=== PATIENT | female | born 1995 | race Caucasian/White ===

== ENCOUNTER 2018-08-11 15:02 | Emergency (ER) | payer SELFPAY ==
[~2018-08-11] VITALS: Ht 162.6 cm; Wt 68.0 kg
--- NOTE | 2018-08-11 15:24 | Emergency Room Report ---
History of Present Illness General Chief Complaint: Overdose Source: Patient, EMS (Dru Saucedo MD) Present Illness HPI 22-year-old female presents ED for evaluation. Brought in by EMS for altered level of consciousness. Friends called 911 stating the patient overdosed on ketamine and GHB since last night. Patient is lethargic. Protecting her airways. Patient given Narcan in the field without improvement. Patient unable to provide any additional history at this time. No family or friends at bedside to provide any additional history. No other aggravating relieving factors. No other associated symptoms (Dru Saucedo MD) Allergies: Coded Allergies: UNABLE TO ASSESS (Unverified , 08/11/18) Patient History Past Medical History: none Past Surgical History: none Pertinent Family History: none Social History: Reports: drug use; Denies: smoking, alcohol use Now: No Immunizations: UTD Reviewed Nursing Documentation: PMH: Agreed; PSxH: Agreed (Dru Saucedo MD) Nursing Documentation-PMH Past Medical History: No Stated History (Dru Saucedo MD) Review of Systems All Other Systems: limited (Dru Saucedo MD) Physical Exam Vital Signs Date Time Temp Pulse Resp B/P (MAP) Pulse Ox O2 Delivery O2 Flow Rate FiO2 08/11/18 14:59 98.1 99 15 97/44 98 Room Air Sp02 EP Interpretation: reviewed, normal General Appearance: no apparent distress, lethargic Head: normocephalic Eyes: bilateral eye normal inspection, bilateral eye PERRL, bilateral eye other - pinpoint ENT: normal ENT inspection Neck: normal inspection Respiratory: chest non-tender, lungs clear, normal breath sounds, speaking full sentences Cardiovascular #1: regular rate, rhythm, no edema Gastrointestinal: normal bowel sounds, non tender, soft, non-distended, no guarding, no rebound Rectal: deferred Genitourinary: normal inspection Musculoskeletal: back normal, gait/station normal, normal range of motion, non- tender Neurologic: other - lethargic Psychiatric: other - lethargic Skin: normal inspection Lymphatic: normal inspection (Dru Saucedo MD) Medical Decision Making Diagnostic Impression: Primary Impression: Polysubstance abuse Additional Impression: Drug overdose Qualified Codes: T50.901A - Poisoning by unspecified drugs, medicaments and biological substances, accidental (unintentional), initial encounter ER Course Patient signout to me. Patient presents with polysubstance overdose. She was unresponsive for unknown amount of time. I was going to get a CT scan to make sure there is no bleeding. As she was being transported, she became very aggressive and yelling. Initially incomprehensible yelling. Later on she was able to verbalize saying "God help me." I had to sedate her. Her was no focal deficit. She slept for another hour or so and woke up and able to verbalize everything. There is no focal deficit. She is now back to baseline. Her friend called and said she will picked her up in the morning. Patient denies suicidal thoughts or homicidal thought. There is no criteria for admission now or 5150. This patient is a chronic risk of self injury due to poor impulse control, limited coping skills, and judgment intermittently impaired by intoxication. I believe that the available clinical evidence to suggest that these characteristics derived primarily from personality disorder and are likely very stable over time. Hospitalization would likely attenuate risk of self-harm only during long term period, without lasting risk reduction. Serious self-harm , while possible, would likely be inadvertent, and because of impulsivity, and foreseeable. For these reasons, I do not believe hospitalization would provide meaningful reduction in risk of self-harm. (Abhilash Montalvo MD) EKG Diagnostic Results Rate: normal Rhythm: NSR ST Segments: no acute changes ASA given to the pt in ED: No (Dru Saucedo MD) Rhythm Strip Diag. Results EP Interpretation: yes Rhythm: NSR, no PVC's, no ectopy (Dru Saucedo MD) Last Vital Signs Date Time Temp Pulse Resp B/P (MAP) Pulse Ox O2 Delivery O2 Flow Rate FiO2 08/11/18 14:59 98.1 99 15 97/44 98 Room Air (Dru Saucedo MD) Status: improved (Abhilash Montalvo MD) Disposition: HOME, SELF-CARE Condition: Stable Additional Instructions: Stop using drugs. Follow-up with rehabilitation. Follow-up with your doctor within a week. Return if symptom worsen. Dru Saucedo MD August 11, 2018 15:24 Abhilash Montalvo MD August 12, 2018 05:26
[2018-08-11 15:32] VITALS: BP 85/46
--- NOTE | 2018-08-11 15:36 | NUR ---
ED Nurse Note:pt. was BIBA from home with OD on unknown substance, VSS, pt. is lethargic on arrival, placed on supervisor finishing department for observation, blood and urine sent to labs, given IV fluids for hypotention
[2018-08-11 16:02] VITALS: BP 100/67
--- NOTE | 2018-08-11 16:03 | NUR ---
ED Nurse Note:pt's O2 sats went down -she was placed on non-rebrither mask and O2 went to 100%, continue monitor VS
[2018-08-11 16:13] LABS: APPEARANCE,URINE CLEAR; BILIRUBIN, URINE NEGATIVE (NEGATIVE); COLOR,URINE PALE YELLOW; GLUCOSE, URINE (UA) NEGATIVE (NEGATIVE); KETONES,URINE NEGATIVE (NEGATIVE); LEUKOCYTE ESTERASE ,URINE NEGATIVE (NEGATIVE); NITRITE,URINE NEGATIVE (NEGATIVE); PH,URINE 5 (4.5-8.0); PROTEIN,URINE NEGATIVE (NEGATIVE); UROBILINOGEN,URINE NORMAL MG/DL (0.0-1.0)
[2018-08-11 16:15] LABS: BASOPHILS % (AUTO) 1.5 % (0.0-2.0); EOSINOPHILS % (AUTO) 1.2 % (0.0-3.0); HEMATOCRIT 37.7 % (37.0-47.0); HEMOGLOBIN 13.1 G/DL (12.0-16.0); LYMPHOCYTES % (AUTO) 21.2 % (20.0-45.0); MEAN CORPUSCULAR VOLUME 95 FL (80-99); MONOCYTES % (AUTO) 9.5 % (1.0-10.0); NEUTROPHILS % (AUTO) 66.6 % (45.0-75.0); PLATELET COUNT 214 K/UL (150-450); RED BLOOD COUNT 3.96 M/UL (4.20-5.40); RED CELL DISTRIBUTION WIDTH 11.6 % (11.6-14.8); WHITE BLOOD COUNT 7.7 K/UL (4.8-10.8)
[2018-08-11 16:18] LABS: ANION GAP 15 mmol/L (5-15); BLOOD UREA NITROGEN 7 mg/dL (7-18); CALCIUM 8.6 MG/DL (8.5-10.1); CARBON DIOXIDE 22 MMOL/L (21-32); CHLORIDE 105 MMOL/L (98-107); SODIUM 142 MMOL/L (136-145)
[2018-08-11 16:26] LABS: ALANINE AMINOTRANSFERASE 25 U/L (12-78); ALBUMIN/GLOBULIN RATIO 0.9 (1.0-2.7); ALKALINE PHOSPHATASE 36 U/L (46-116); ASPARTATE AMINO TRANSFERASE 19 U/L (15-37); BILIRUBIN,TOTAL 0.3 MG/DL (0.2-1.0)
[2018-08-11] MEDS: NS w/KCl 40mEq 1,000 ML IV SCH (16:28)
[2018-08-11 16:59] VITALS: BP 115/66
--- NOTE | 2018-08-11 17:00 | NUR ---
ED Nurse Note:pt. was switched to simple mask with 4L O2, VSS, steel in deep sleep
--- NOTE | 2018-08-11 18:04 | NUR ---
ED Nurse Note:when ready to be D/C contact Laura [phone] her friend
[2018-08-11 18:59] VITALS: BP 114/68
--- NOTE | 2018-08-11 19:08 | NUR ---
HAND-OFF: Report given to Yohana.
--- NOTE | 2018-08-11 19:20 | NUR ---
ED Nurse Note: Patient repositioned to low fowlers position, with head tilted to the side.
--- NOTE | 2018-08-11 19:26 | NUR ---
ED Nurse Note: Patient sleeping with no s/s of acute distress. Archuleta emptied. Vital signs stable and recorded.
[2018-08-11 19:27] VITALS: BP 111/62
--- NOTE | 2018-08-11 21:37 | NUR ---
ED Nurse Note: Frequently monitoring patient for airway management. Patient experiencing positional desat. Will consult ERMD regarding oral airway. Will continue to monitor.
[2018-08-11] MEDS ORDERED: Haloperidol 5mg/ml Inj IM ONE (22:30)
[2018-08-11] MEDS ORDERED: LORazepam Inj 2mg/ml 1ml ONE (22:39)
[2018-08-11] MEDS ORDERED: LORazepam Inj 2mg/ml 1ml IV ONE ×2 (22:45)
--- NOTE | 2018-08-12 01:05 | NUR ---
ED Nurse Note: Patient awake alert and oriented x4. Called friend per request on note. Friend does not plan to pick patient up until later in the morning. Patient vital signs stable. Patint provided with water.
[2018-08-12 01:11] VITALS: BP 124/58
[2018-08-12 02:27] VITALS: BP 103/74
--- NOTE | 2018-08-12 02:28 | NUR ---
ED Nurse Note: Patietn resting comfortably, no s/s of acute distress. Will continue to monitor.
[2018-08-12] MEDS: NS w/KCl 40mEq 1,000 ML IV SCH (02:30)
--- NOTE | 2018-08-12 07:05 | NUR ---
ED Nurse Note: Patient cleared for discharge by ERMD. no s/s of acute distress. IV rmoved, ID band removed, Patient verbalized understanding lf discharge instructions. Patient escorted to discharge desk and to phone to call friend for pickup.
[2018-08-12 07:07] VITALS: BP 103/74
--- NOTE | 2018-08-12 17:44 | Cardiology Report ---
APPROVED REPORT EKG Measurement Heart [id number] Normal sinus rhythm Rightward axis Borderline ECG
== END 2018-08-12 07:07 | disposition home or self-care (01) ==
LOC: EDBD 15:02 → EMR 19:47 → CANBEDREQ 08-12 06:18 → EMR 08-12 07:07
DX: T41.291A Poisoning by other general anesthetics, accidental (unintentional), initial encounter (principal); R41.82 Altered mental status, unspecified; Y92.9 Unspecified place or not applicable
CPT/HCPCS: 36415; 80053; 80307; 81003; 81025; 85025; 93005; 96361; 96372; 96374; 99284; G0480; J1630; 80329